=== PATIENT | female | born 1970 | race Caucasian/White ===

== ENCOUNTER 2024-08-09 08:22 | Outpatient (CLI) | payer OTHER | END 2024-08-09 08:23 | disposition home or self-care (01) | LOC: CSHULT 08:22 | PROVIDERS: ATTEND Family Medicine | DX: R10.9 Unspecified abdominal pain (principal); N28.1 Cyst of kidney, acquired; Z90.710 Acquired absence of both cervix and uterus | CPT/HCPCS: 76700; 76856 ==